=== PATIENT | female | born 1980 | race Caucasian/White ===

== ENCOUNTER 2023-08-28 10:48 | Emergency (ER) | payer OTHER, SELFPAY ==
[2023-08-28 10:56] VITALS: BP 125/100
[2023-08-28 11:28] VITALS: BMI 34.8
--- NOTE | 2023-08-28 11:34 | ED.GENMED ---
History of Present Illness
General
Chief Complaint: Skin Problem
Source: patient
Exam Limitations: none
Time Seen by Provider: 08/28/23 11:34
Nursing documentation reviewed up to this point in time: agreed with
Travel History
Have you had any contact with someone who has COVID-19?: No
Do you have any symptoms of coronavirus? Fever > 100 degrees, chills, cough, shortness of breath, sore throat, loss of taste or smell, muscle aches, or headache?: No
History of Present Illness
History of Present Illness:
42-year-old female with no significant past medical history presents with itchy rash on both forearms, face ears and anterior neck.
Started a new job 13 days ago, using [employer], wears gloves up to wrists. Rash started both anterior wrists as small patches, has spread to both forearms up to elbows, entire face, anterior neck, ears. Only on exposed skin.
Denies fever/chills.
Past History
Past History
ED Past Medical History: Asthma (RAD, asthmatic bronchitis) and Psychiatric
ED Past Surgical History: None
Social History
Tobacco: Smoker
Alcohol: Occasional
Drug: None
Personal:
Living: with family
Employment: Not employed
Family History
Family History: Negative Early CAD
Review of Systems
Review of Systems
Allergies reviewed?: Yes
All Other Systems: ROS reviewed and negative except as documented in HPI and ROS
Constitutional: Denies fever
EENT: Denies sore throat or mouth swelling
Respiratory: Denies trouble breathing
Cardiac: Denies chest pain
ABD/GI: Denies nausea
Skin: Reports itching and rash
Neurological: Denies headache
Phy Exam
Physical Exam
Physical Exam:
GENERAL: No acute distress. A&Ox3.
CONSTITUTIONAL: Afebrile.
EYES: clear, conjunctivae normal
Neck: Supple
ENMT: moist mucus membranes, Pharynx nl
RESPIRATORY: Regular respirations, nonlabored, lungs clear.
CARDIOVASCULAR: Regular rate and rhythm, no murmurs, no rubs.
GI: Soft, nontender, normal BS
MUSCULOSKELETAL: Moves with ease. Well perfused.
SKIN: Warm, dry, pink, raised itchy raised macular rash on both forearms mainly anterior aspects and over entire face, ears and anterior neck. Mild swelling of eyelids. The rest of the skin is spared
PSYCH: Normal mood and affect. Well kept, interactive and appropriate
NEUROLOGIC: Awake, alert and oriented. No focal neurological deficits
Course
Vital Signs
Initial and Last Documented VS:
Initial Vital Signs
Pulse Resp BP Pulse Ox
100 16 125/100 98
08/28/23 10:56 08/28/23 10:56 08/28/23 10:56 08/28/23 10:56
Last Documented Vital Signs
Pulse Resp BP Pulse Ox
95 16 103/58 97
08/28/23 13:15 08/28/23 13:15 08/28/23 13:15 08/28/23 13:15
MDM/Problems Addressed
Differential Diagnosis Includes:
Allergic contact dermatitis to chemical
MDM/Problems Addressed:
42-year-old female with no significant past medical history presents with itchy rash on both forearms, face ears and anterior neck.
Started a new job 13 days ago, using [employer], wears gloves up to wrists. Rash started both anterior wrists as small patches, has spread to both forearms up to elbows, entire face, anterior neck, ears. Only on exposed skin.
Started new [employer] last week, had 0.25 mg 8 and 2 days ago. Wonders if allergic reaction to this.
Denies fever/chills.
Significant itchy rash of face, ears, anterior neck and forearms to elbows
Patient has no systemic symptoms, no indication for blood work
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
Plan:
Rx for prednisone taper sent to her pharmacy
Benadryl as needed, watch for signs of infection
*Critical Care Note
Total Time (30-74mins, 75-104mins- exclusive of procedures): Not Applicable
ED Attending Note
-
Portions of this chart may have been created with voice recognition software.� Occasional wrong word or��sound alike� substitutions may have occurred due to the inherent limitations of voice recognition software.
Discharge Plan
Departure
Patient Disposition: Home (Routine Discharge)
Date of Disposition: 08/28/23
Time of Disposition: 12:53
Patient with high blood pressure during this ER visit?: Yes
Condition: Fair
Discharge Problem:
Allergic contact dermatitis due to chemical
Instructions: Contact Dermatitis (DC)
Prescriptions:
New
prednisone 10 mg Tablet
See Rx Instructions .ROUTE .COMPLEX Qty: 45 0RF
Rx Instructions:
Take By Mouth:
50 mg daily x3 days, 40 mg daily x3 days,
30 mg daily x3 days, 20 mg daily x3 days,
10 mg daily x3 days
No Action
bupropion HCl 150 MG tablet sustained-release 12 hr
150 mg PO DAILY
carisoprodol 350 MG tablet
350 mg PO TID PRN (Reason: spasm) Qty: 15 0RF
prednisone 10 MG tablet
10 mg PO Daily Qty: 20 0RF
Rx Instructions:
Take 5 on days 1 and 2 then 4, 3 ,2, 1 thereafter.
carisoprodol [Soma] 250 MG tablet
250 mg PO TIDPRN PRN (Reason: for spasm) Qty: 30 0RF
oxycodone-acetaminophen 5 MG/325 MG tablet
2 tab PO Q6HPRN PRN (Reason: pain) Qty: 15 0RF
Rx Instructions:
Do not drive, operate machinery or make important decisions while taking this medication.
prednisone 20 MG tablet
40 mg PO DAILY Qty: 8 0RF
carisoprodol 350 MG tablet
350 mg PO TIDPRN PRN (Reason: back pain) Qty: 30 0RF
gabapentin 300 MG capsule
300 mg PO TID Qty: 15 0RF
Rx Instructions:
Take 1 capsule every 12 hours tomorrow, and then every eight hours starting November 28
prednisone 20 MG tablet
40 mg PO DAILY Qty: 6 0RF
carisoprodol 350 MG tablet
350 mg PO TIDPRN PRN (Reason: muscle spasms, tightness) Qty: 6 0RF
Referrals:
Herbert Franklin MD [Family Provider] - As needed
Stand Alone Forms: Return to Work
Activity Restrictions/Additional Instructions:
As we discussed, I sent a prescription to your pharmacy for a prednisone taper.
You may also take Benadryl 25-50 mg every 6 hours as needed for itching, it can make you sleepy so do no drive or operate any machinery within 6 hours of taking it.
Avoid contact with the [employer].
See your doctor for recheck in 5 days if no improvement.
Seek medical care immediately for signs of infection which may include fever, vomiting, increasing swelling and redness, pus drainage.
Interventions
Interventions:
*Risk Screen - Suicide Last Done: 08/28/23 10:56
*General Assessment Last Done: 08/28/23 10:56
*Neglect/Abuse Screening Last Done: 08/28/23 10:56
ED- Fall Risk Assessment Last Done: 08/28/23 11:28
*ED COVID-19 Vaccine History Last Done: 08/28/23 11:28
*Nursing Disposition Last Done: 08/28/23 13:15
ED-Skin Assessment Last Done: 08/28/23 11:28
Discharge Date and Time
Discharge Date/Time: 08/28/23 13:20
Print Language: ALGERIAN
[2023-08-28 13:15] VITALS: BP 103/58
== END 2023-08-28 13:20 | disposition home or self-care (01) ==
LOC: EMR 10:48
PROVIDERS: EMERGENCY PHYSICIAN Emergency Medicine; FAMILY PHYSICIAN Family Medicine
DX: L23.5 Allergic contact dermatitis due to other chemical products (principal); F17.200 Nicotine dependence, unspecified, uncomplicated; Y99.0 Civilian activity done for income or pay; R03.0 Elevated blood-pressure reading, without diagnosis of hypertension
CPT/HCPCS: 99283

== ENCOUNTER 2024-04-25 17:50 | Emergency (ER) | payer SELFPAY ==
[2024-04-25 17:52] VITALS: BP 128/96
--- NOTE | 2024-04-25 17:55 | ED.GENMED ---
ED Provider Triage
-
Patient seen by provider in Triage?: Seen in Triage
43-year-old female history of smoking, presents for 2 to 3 days of fever subjective and a cough. Patient has a little bit of tightness in her lungs.
She has no history of any lung disease. She has had pneumonia previously and felt like this. She does not get a flu shot this year. She has had a COVID-vaccine. On exam the patient is not hypoxic, afebrile, in no respiratory distress but does
have crackles in the left base suspicious for pneumonia.
She is otherwise healthy, will start with flu, COVID, chest x-ray
A medical screening examination has been initiated by a qualified medical provider. Based on the assessment performed at this time, it has been determined that an emergent medical condition may exist and the patient has been informed that further
medical evaluation and possible additional diagnostic testing may be needed.
HPI: This is a medical evaluation conducted in person to initiate diagnostic evaluation and provide initial therapeutics. Please see further documentation by the treating clinician.
GENERAL: Alert , in no apparent distress
ENT: No visible abnormalities
LUNGS: No acute respiratory distress
Crackles left base minimally, no wheezing
NEUROLOGICAL: Alert and oriented
SKIN: Skin intact. No visible changes.
MUSCULOSKELETAL: Moving extremities normally
PSYCH: Normal and appropriate interaction.
History of Present Illness
General
Chief Complaint: Fever
Source: patient
Exam Limitations: none
Time Seen by Provider: 04/25/24 18:03
Nursing documentation reviewed up to this point in time: agreed with
History of Present Illness
History of Present Illness:
43-year-old female with history of depression
Presents for 2 days of subjective fever, chills and a cough. Patient says she also has a headache. She has been taking ibuprofen 3-4 times a day for symptoms. She is not having significant shortness of breath or pleuritic pain but she feels some
discomfort with coughing. Her cough is moderate. She has had pneumonia previously and feels similar. She is not having any neck stiffness, vomiting or diarrhea. Patient is not asthmatic but she is a smoker
Past History
Past History
ED Past Medical History: Asthma (RAD, asthmatic bronchitis) and Psychiatric
ED Past Surgical History: None
Social History
Tobacco: Smoker
Alcohol: Occasional
Drug: None
Personal:
Living: with family
Employment: Not employed
Family History
Family History: Negative Early CAD
Review of Systems
Review of Systems
Allergies reviewed?: Yes
All Other Systems: Not applicable
Phy Exam
Physical Exam
Physical Exam:
GENERAL: Alert , in no apparent distress
EYE: pupils equal and reactive
NECK: Supple
ENT: b/l TM s clear, pharynx erythematous but no tonsillar hypertrophy or exudates
CARDIAC: Regular rate and rhythm, no edema
LUNGS: Clear breath sounds bilaterally, no acute respiratory distress, no wheezes/rales/rhonchi, occ cough
ABDOMEN: Soft, without focal tenderness, no r/g, no cvat, normal bowel sounds
NEUROLOGICAL: Alert and oriented, no focal neuro deficits
SKIN: Warm and dry, skin intact.
MUSCULOSKELETAL: No edema, well perfused.
PSYCH: Normal and appropriate interaction.
Course
Orders/Labs/Results
Orders:
Orders
04/25/24 17:55
CR Chest - 2 Views Urgent
Comment:
Reason For Exam: cough, fever x 2 days
04/25/24 17:58
COVID-19 Antigen Urgent
Source: Nasal Swab
Influenza A+B Rapid Molecular Urgent
[facility] Source: Nasal Swab
Specimen Description:
04/25/24 18:27
Amoxicillin 875 mg/Clav 125 mg [Augmentin 875 mg/125 mg] 1 tablet PO NOW STA
Azithromycin [Zithromax] 500 mg PO NOW STA
Vital Signs
Initial and Last Documented VS:
Initial Vital Signs
Temp Pulse Resp BP Pulse Ox
36.9 C 101 18 128/96 96
04/25/24 17:52 04/25/24 17:52 04/25/24 17:52 04/25/24 17:52 04/25/24 17:52
Last Documented Vital Signs
Temp Pulse Resp BP Pulse Ox
36.9 C 95 18 113/65 94
04/25/24 17:52 04/25/24 18:30 04/25/24 18:30 04/25/24 18:30 04/25/24 18:31
MDM/Problems Addressed
Differential Diagnosis Includes:
flu, covid, pneumonia,
MDM/Problems Addressed:
43-year-old female with a history of smoking and history of pneumonia previously presents with 2 days of a fever, headache, cough. Occasionally she feels short of breath if she goes to exert herself but otherwise no shortness of breath. She is not
having pleuritic chest pain but feels some tightness with the cough. She is not wheezing. On exam she is not hypoxic, afebrile after taking medication today. She has crackles in her left base. Her chest x-ray was independently reviewed by me to
reveal significant lower lobe pneumonia. Reviewed with ED attending Dr. Chaudhry who also saw the patient. She appears to be not feeling well but nontoxic and in no respiratory distress. Will treat her with Zithromax and Augmentin given the
fair amount of mycoplasma pneumonia that is going around. Return precautions given. Also will give her an inhaler as needed for her cough
*Critical Care Note
Total Time (30-74mins, 75-104mins- exclusive of procedures): Not Applicable
ED Attending Note
-
Portions of this chart may have been created with voice recognition software.� Occasional wrong word or��sound alike� substitutions may have occurred due to the inherent limitations of voice recognition software.
Discharge Plan
Departure
Patient Disposition: Home (Routine Discharge)
Date of Disposition: 04/25/24
Time of Disposition: 18:29
Patient with high blood pressure during this ER visit?: No
Covid-19: Negative COVID-19
Discharge Problem:
Pneumonia
Instructions: Pneumonia, Adult (DC)
Prescriptions:
New
amoxicillin-pot clavulanate 875-125 mg tablet
1 tab PO BID Qty: 20 0RF
albuterol sulfate 90 mcg/actuation HFA aerosol inhaler
2 puff inhalation Q6H PRN (Reason: shortness of breath or wheezing) Qty: 6.7 0RF
azithromycin [Zithromax] 250 mg tablet
250 mg PO DAILY Qty: 4 0RF
No Action
bupropion HCl 150 MG tablet sustained-release 12 hr
150 mg PO DAILY
carisoprodol 350 MG tablet
350 mg PO TID PRN (Reason: spasm) Qty: 15 0RF
prednisone 10 MG tablet
10 mg PO Daily Qty: 20 0RF
Rx Instructions:
Take 5 on days 1 and 2 then 4, 3 ,2, 1 thereafter.
carisoprodol [Soma] 250 MG tablet
250 mg PO TIDPRN PRN (Reason: for spasm) Qty: 30 0RF
oxycodone-acetaminophen 5 MG/325 MG tablet
2 tab PO Q6HPRN PRN (Reason: pain) Qty: 15 0RF
Rx Instructions:
Do not drive, operate machinery or make important decisions while taking this medication.
prednisone 20 MG tablet
40 mg PO DAILY Qty: 8 0RF
carisoprodol 350 MG tablet
350 mg PO TIDPRN PRN (Reason: back pain) Qty: 30 0RF
gabapentin 300 MG capsule
300 mg PO TID Qty: 15 0RF
Rx Instructions:
Take 1 capsule every 12 hours tomorrow, and then every eight hours starting November 28
prednisone 20 MG tablet
40 mg PO DAILY Qty: 6 0RF
carisoprodol 350 MG tablet
350 mg PO TIDPRN PRN (Reason: muscle spasms, tightness) Qty: 6 0RF
prednisone 10 mg Tablet
See Rx Instructions .ROUTE .COMPLEX Qty: 45 0RF
Rx Instructions:
Take By Mouth:
50 mg daily x3 days, 40 mg daily x3 days,
30 mg daily x3 days, 20 mg daily x3 days,
10 mg daily x3 days
Stand Alone Forms: Return to Work
Activity Restrictions/Additional Instructions:
You have a moderate size pneumonia in your left lower lobe. You need to watch your symptoms closely and take your antibiotics. Should you get any worse with shortness of breath or continued spiking fevers in the next 2 to 3 days you should return
to the ER.
Also return for severe vomiting or diarrhea, lethargy, chest pain etc.
Otherwise take Augmentin twice a day for 10 days. Also take Zithromax once a day for 4 more days starting tomorrow
You can use an inhaler 2 puffs every 4-6 hours as needed for cough. Stay up on your Tylenol and ibuprofen for headache and fever symptoms. Stay hydrated. Return for any concerns
YOU NEED TO HAVE REPEAT CHEST XRAY IN 3-4 WEEKS TO BE SURE THIS IMPROVED.
Interventions
Interventions:
*Risk Screen - Suicide Last Done: 04/25/24 17:56
*General Assessment Last Done: 04/25/24 17:55
*Neglect/Abuse Screening Last Done: 04/25/24 17:56
*ED COVID-19 Vaccine History Last Done: 04/25/24 17:56
ED- Neurological Assessment Last Done: 04/25/24 18:30
ED-Skin Assessment Last Done: 04/25/24 18:30
Discharge Date and Time
Print Language: KAZAKH
[2024-04-25 18:17] LABS: COVID-19 Antigen Negative (Negative)
[2024-04-25 18:30] VITALS: BP 113/65
[2024-04-25] MEDS: AUGMENTIN 875 MG/125 MG 1 TABLET PO (18:37)
[2024-04-25] MEDS: ZITHROMAX 500 MG PO (18:38)
== END 2024-04-25 18:45 | disposition home or self-care (01) ==
LOC: EMR 17:50
PROVIDERS: Physician Assistant; EMERGENCY PHYSICIAN Emergency Medicine; FAMILY PHYSICIAN Family Medicine
DX: J18.9 Pneumonia, unspecified organism (principal); F32.A Depression, unspecified; J45.909 Unspecified asthma, uncomplicated; F17.200 Nicotine dependence, unspecified, uncomplicated; Z87.01 Personal history of pneumonia (recurrent)
CPT/HCPCS: 99283; 71046; 87502; 87811

== ENCOUNTER 2024-05-19 16:33 | Emergency (ER) | payer OTHER, SELFPAY ==
[2024-05-19 16:38] VITALS: BP 125/77
[2024-05-19 17:17] LABS: % Basophils 0.5 % (0-2); % Eosinophils 3.4 % (0-6); % Immature Granulocytes 0.3 % (0-0.5); % Lymphocytes 20.9 % (20.5-51.1); % Monocytes 5.9 % (1.7-9.3); Absolute Basophils 0.1 10^3/uL (0-0.2); Absolute Eosinophils 0.3 10^3/uL (0-0.7); Absolute Monocytes 0.6 10^3/uL (0.1-0.6); Absolute Neutrophils 6.5 10^3/uL (1.4-6.5); Hematocrit 36.5 % (37.0-47.0); Hemoglobin 12.2 g/dL (12.0-16.0); Mean Corp Hgb Conc. 33.4 g/dL (33.0-37.0); Mean Corpuscular Hgb 31.4 pg (27.0-31.0); Mean Corpuscular Volume 93.8 fL (81.0-99.0); Mean Platelet Volume 8.4 fL (7.4-10.4); Nucleated Red Blood Cells % 0 %; Platelet Count 255 10^3/uL (130-400); Red Blood Cell Count 3.89 10^6/uL (4.20-5.40); Red Cell Dist. Width 13.4 % (11.5-14.5); White Blood Cell Count 9.4 10^3/uL (4.8-10.8)
[2024-05-19 17:27] LABS: HCG, Serum Qualitative Screen Negative
[2024-05-19 17:32] LABS: ALT (SGPT) 33 U/L (0-35); AST (SGOT) 43 U/L (14-36); Albumin 4.1 g/dl (3.5-5.0); Alkaline Phosphatase 78 U/L (38-126); Blood Urea Nitrogen 6 mg/dl (7-17); Calcium 8.8 mg/dl (8.4-10.2); Carbon Dioxide 27 mmol/L (22-30); Chloride 98 mmol/L (98-107); Glucose 99 mg/dl (70-99); Potassium 3.9 mmol/L (3.5-5.1); Sodium 133 mmol/L (135-145); Total Bilirubin 0.3 mg/dl (0.2-1.3); Total Protein 6.6 g/dl (6.3-8.2); eGFR > 60.00
[2024-05-19 17:38] LABS: COVID-19 Antigen Negative (Negative)
--- NOTE | 2024-05-19 19:20 | ED.GENMED ---
History of Present Illness
General
Chief Complaint: Breathing Problem
Source: patient
Exam Limitations: none
Time Seen by Provider: 05/19/24 19:05
Nursing documentation reviewed up to this point in time: agreed with
History of Present Illness
History of Present Illness:
43 y/o F with h/o previous PNA treated 3 weeks ago LLL
with augmentin and zithromax
felt better but then about 5 days ago started feeling winded, [place] with walking and feels her HR is elevated
she has had a borderline temperature as well the past 2 days
still has a slight cough
no vomiting,d iarrhea
has some trouble taking deep breaths
no recent surgeries or immobilization
never had DVT/PE
no leg swelling
no OCPs
Past History
Past History
ED Past Medical History: Asthma (RAD, asthmatic bronchitis) and Psychiatric
ED Past Surgical History: None
Social History
Tobacco: Smoker
Alcohol: Occasional
Drug: None
Personal:
Living: with family
Employment: Not employed
Family History
Family History: Negative Early CAD
Phy Exam
Physical Exam
Physical Exam:
GENERAL: Alert , in no apparent distress
EYE: pupils equal and reactive
NECK: Supple
ENT: o/p clr, mmm.
CARDIAC: Regular rate and rhythm .
LUNGS: insp/exp wheezes throughout, some faint crackles L base; no resp distress; occ cough
ABDOMEN: Soft, without focal tenderness, no r/g, no cvat, normal bowel sounds
NEUROLOGICAL: Alert and oriented, no focal neuro deficits
SKIN: Warm and dry, skin intact.
MUSCULOSKELETAL: No edema, well perfused. neg stephanie's sign
PSYCH: Normal and appropriate interaction.
Course
Orders/Labs/Results
Orders:
Orders
05/19/24 16:34
ECG [Electrocardiogram (*1)] Urgent
Reason for Study: Shortness of Breath
EKG- Treatment ONCE
Test Result ONCE
05/19/24 17:06
COVID-19 Antigen Urgent
Source: Nasal Swab
Complete Blood Count/With Diff Urgent
Comprehensive Metabolic Panel Urgent
HCG, Serum Qualitative Screen Urgent
Influenza A+B Rapid Molecular Urgent
[facility] Source: Nasal Swab
Specimen Description:
05/19/24 19:17
CT Chest Pe Study Urgent
Comment:
Reason For Exam: recent pna, resolved, now sob, elev hr
05/19/24 19:18
Dexamethasone Sod Phosphate [Decadron] 10 mg IV NOW STA
Ipratropium/Albuterol Sulfate [Duoneb] 3 ml INH R NOW ONE
05/19/24 21:34
Ipratropium/Albuterol Sulfate [Duoneb] 3 ml INH R NOW STA
Abnormal Lab Results
05/19/24
17:06
RBC 3.89 L 10^6/uL
(4.20-5.40)
Hct 36.5 L %
(37.0-47.0)
MCH 31.4 H pg
(27.0-31.0)
Sodium 133 L mmol/L
(135-145)
BUN 6 L mg/dl
(7-17)
AST 43 H U/L
(14-36)
05/19/24 17:06
05/19/24 17:06
Vital Signs
Initial and Last Documented VS:
Initial Vital Signs
Temp Pulse Resp BP Pulse Ox
37.6 C 110 22 125/77 97
05/19/24 16:38 05/19/24 16:38 05/19/24 16:38 05/19/24 16:38 05/19/24 16:38
Last Documented Vital Signs
Temp Pulse Resp BP Pulse Ox
37.6 C 99 23 107/60 91
05/19/24 16:38 05/19/24 21:45 05/19/24 21:45 05/19/24 20:00 05/19/24 21:45
MDM/Problems Addressed
Differential Diagnosis Includes:
pna, asthmatic bronchitis, reactive airway, PE
MDM/Problems Addressed:
43 y/o F
seen nearly 3.5 weeks ago for pneumonia LLL moderate sized infilrate
treated with augmentin and zithromax
fevers improved, cough dissipated but never fully resolved and then the apst few days she has felt SOB with elevated HR
no obvious fever
no cp
no achiness
well appearing
no resp distress
wheezing insp/exp
pulse ox 93%
tachy
CT shows no PE but has fluid that is multilobar that could be c/w viral pneumonia but when compared to infiltrate from 3 weeks ago, it is mostly in the LLL
i do feelt hat this is not techynically treatment failure, she has reassuring blood work with normal wbc
an dmore wheezing
pt has requiered steroids previously with pna;
given duoneb and steroids and felt much better
she ambulated and did desat to 90%
but pt wants to go home, feels better
has neb machine but needed nebules rx which i sent to pharmacy
will hold on additional abx but instead do steroids and albuterol
offered admission but pt feels well enough and would like to go home
d/w dr. villalba.
*Critical Care Note
Total Time (30-74mins, 75-104mins- exclusive of procedures): Not Applicable
ED Attending Note
-
Portions of this chart may have been created with voice recognition software.� Occasional wrong word or��sound alike� substitutions may have occurred due to the inherent limitations of voice recognition software.
Discharge Plan
Departure
Patient Disposition: Home (Routine Discharge)
Date of Disposition: 05/19/24
Time of Disposition: 21:54
Patient with high blood pressure during this ER visit?: No
Condition: Fair
Covid-19: Not Applicable
Discharge Problem:
Asthmatic bronchitis
Instructions: Wheezing in adults - ED discharge instructions, Bronchitis in adults - ED discharge instructions
Prescriptions:
New
albuterol sulfate 2.5 mg /3 mL (0.083 %) solution for nebulization
2.5 mg inhalation QID PRN (Reason: shortness of breath or wheezing) Qty: 90 0RF
prednisone 50 mg tablet
50 mg PO DAILY Qty: 5 0RF
No Action
bupropion HCl 150 MG tablet sustained-release 12 hr
150 mg PO DAILY
carisoprodol 350 MG tablet
350 mg PO TID PRN (Reason: spasm) Qty: 15 0RF
prednisone 10 MG tablet
10 mg PO Daily Qty: 20 0RF
Rx Instructions:
Take 5 on days 1 and 2 then 4, 3 ,2, 1 thereafter.
carisoprodol [Soma] 250 MG tablet
250 mg PO TIDPRN PRN (Reason: for spasm) Qty: 30 0RF
oxycodone-acetaminophen 5 MG/325 MG tablet
2 tab PO Q6HPRN PRN (Reason: pain) Qty: 15 0RF
Rx Instructions:
Do not drive, operate machinery or make important decisions while taking this medication.
prednisone 20 MG tablet
40 mg PO DAILY Qty: 8 0RF
carisoprodol 350 MG tablet
350 mg PO TIDPRN PRN (Reason: back pain) Qty: 30 0RF
gabapentin 300 MG capsule
300 mg PO TID Qty: 15 0RF
Rx Instructions:
Take 1 capsule every 12 hours tomorrow, and then every eight hours starting November 28
prednisone 20 MG tablet
40 mg PO DAILY Qty: 6 0RF
carisoprodol 350 MG tablet
350 mg PO TIDPRN PRN (Reason: muscle spasms, tightness) Qty: 6 0RF
prednisone 10 mg Tablet
See Rx Instructions .ROUTE .COMPLEX Qty: 45 0RF
Rx Instructions:
Take By Mouth:
50 mg daily x3 days, 40 mg daily x3 days,
30 mg daily x3 days, 20 mg daily x3 days,
10 mg daily x3 days
amoxicillin-pot clavulanate 875-125 mg tablet
1 tab PO BID Qty: 20 0RF
albuterol sulfate 90 mcg/actuation HFA aerosol inhaler
2 puff inhalation Q6H PRN (Reason: shortness of breath or wheezing) Qty: 6.7 0RF
azithromycin [Zithromax] 250 mg tablet
250 mg PO DAILY Qty: 4 0RF
Referrals:
Greg Leavitt MD [Active] - Follow up in 5-7 days (PULMONARY)
Herbert Franklin MD [Family Provider] - Follow up in 2-3 days
Stand Alone Forms: Return to Work
Activity Restrictions/Additional Instructions:
YOUR CAT SCAN WAS NEGATIVE FOR BLOOD CLOT BUT YOU HAVE SOME FLUID IN YOUR LUNGS THAT LOOKS LIKE A VIRAL PNEUOMONIA - YOU DO NEED TO HAVE REPEATED IMAGING IN 3-4 WEEKS TO BE SURE THIS CLEARS UP
DRINK FLUIDS/STAY HYDRATED
NEBULIZER EVERY 4-6 HOURS FOR WHEEZING
PREDNISONE ONCE A DAY OR 5 DAYS
SEE YOUR DOCTOR TN[facility] TWEEK
RETURN FOR: WROSENING SHORTNESS OF BREATH, CHEST PAIN, PASSING OUT, WORSE WHEEZING OR ANY CONCERNS.
Interventions
Interventions:
*Risk Screen - Suicide Last Done: 05/19/24 19:36
*General Assessment Last Done: 05/19/24 19:36
*Neglect/Abuse Screening Last Done: 05/19/24 19:36
ED- Fall Risk Assessment Last Done: 05/19/24 19:37
*ED COVID-19 Vaccine History Last Done: 05/19/24 19:36
*Nursing Disposition Last Done: 05/19/24 22:08
ED- Cardiac Assessment Last Done: 05/19/24 19:37
ED- Pulmonary Assessment Last Done: 05/19/24 19:37
Discharge Date and Time
Discharge Date/Time: 05/19/24 22:11
Print Language: COMORAN
[2024-05-19] MEDS: DUONEB 3 ML INH ×2 (19:30→21:59)
[2024-05-19] MEDS: DECADRON 10 MG IV (19:30)
[2024-05-19 19:33] VITALS: BP 121/74
[2024-05-19 19:35] VITALS: BMI 34.4
[2024-05-19 20:00] VITALS: BP 107/60
== END 2024-05-19 22:11 | disposition home or self-care (01) ==
LOC: EMR 16:33
PROVIDERS: Emergency Medicine; EMERGENCY PHYSICIAN Emergency Medicine; FAMILY PHYSICIAN Family Medicine
DX: J45.909 Unspecified asthma, uncomplicated (principal); F17.200 Nicotine dependence, unspecified, uncomplicated; Z87.01 Personal history of pneumonia (recurrent)
CPT/HCPCS: 99284; 94640; 96374; 71275; 80053; 84703; 85025; 87502; 87811; 93005; Q9967

== ENCOUNTER 2025-03-12 17:04 | Emergency (ER) | payer OTHER, SELFPAY ==
[2025-03-12 17:17] VITALS: BP 145/83
[2025-03-12 18:10] LABS: COVID-19 Antigen Negative (Negative)
--- NOTE | 2025-03-12 19:15 | ED.GENMED ---
History of Present Illness
General
Chief Complaint: Pneumonia Symptoms
Source: patient
Exam Limitations: none
Time Seen by Provider: 03/12/25 19:08
Nursing documentation reviewed up to this point in time: agreed with
History of Present Illness
History of Present Illness:
Patient to the emergency department with complaint of chest tightness, shortness of breath, cough. States symptoms started approximately 3 days ago. She reports that she has had pneumonia in the past and that her symptoms today are very similar.
She denies any fever or chills. She has a prescription for an albuterol inhaler, PMH asthma, to be used as needed and has found the need to use it frequently today. She was brought to the emergency department by her spouse for evaluation. She
reports a history of smoking. Stopped smoking cigarettes approximately 1 month ago and has been vaping since.
Past History
Past History
ED Past Medical History: Asthma (RAD, asthmatic bronchitis) and Psychiatric
ED Past Surgical History: None
Social History
Tobacco: Vaping (Quit cigarettes approx 1 mos ago)
Alcohol: Occasional
Drug: None
Personal:
Living: with family
Employment: Not employed
Family History
Family History: Negative Early CAD
Review of Systems
Review of Systems
Allergies reviewed?: Yes
All Other Systems: ROS reviewed and negative except as documented in HPI and ROS
Constitutional: Reports no symptoms
EENT: Reports no symptoms
Respiratory: Reports cough and trouble breathing
Cardiac: Reports no symptoms
ABD/GI: Reports no symptoms
: Reports no symptoms
Musculoskeletal: Reports no symptoms
Neurological: Reports no symptoms
Psychiatric: Reports no symptoms
Phy Exam
General Physical Exam
General Presentation: mild distress
General age: appears stated age
General Skin: warm and dry
General Habitus: normal
General Mental: alert
Cardiovascular Exam
Cardiovascular Exam: regular rate/rhythm and no edema
Pulmonary Exam
Pulmonary Exam: chest non tender
Oxygen Status: room air (Pulse ox 97%)
Cough: coarse cough
Breath Sounds: Wheeze: generalized
Musculoskeletal Exam
Musculoskeletal Exam: full ROM and neuro vasc intact
Skin Exam
Skin Exam: normal color, warm/dry and no rash
Psychiatric Exam
Psychiatric Exam: normal mood/affect
Course
Orders/Labs/Results
Orders:
Orders
03/12/25 17:20
Electrocardiogram (*1) Urgent
Reason for Study: Shortness of Breath
EKG- Treatment ONCE
CR Chest - 2 Views Urgent
Comment:
Reason For Exam: chest tightness, cough, SOB
03/12/25 17:31
COVID-19 Antigen Urgent
Source: Nasal Swab
Influenza A+B Rapid Molecular Urgent
[facility] Source: Nasal Swab
Specimen Description:
03/12/25 19:14
Dexamethasone Sod Phosphate [Decadron] 10 mg IV NOW STA
Ipratropium/Albuterol Sulfate [Duoneb] 3 ml INH R NOW STA
03/12/25 19:26
Complete Blood Count/With Diff Urgent
Comprehensive Metabolic Panel Urgent
Troponin I Urgent
Abnormal Lab Results
03/12/25
19:26
RBC 4.18 L 10^6/uL
(4.20-5.40)
MCH 31.3 H pg
(27.0-31.0)
Lymphocytes % 16.8 L %
(20.5-51.1)
Glucose 108 H mg/dl
(70-99)
AST 39 H U/L
(14-36)
03/12/25 19:26
03/12/25 19:26
Vital Signs
Initial and Last Documented VS:
Initial Vital Signs
Temp Pulse Resp BP Pulse Ox
98.6 F 89 16 145/83 97
03/12/25 17:17 03/12/25 17:17 03/12/25 17:17 03/12/25 17:17 03/12/25 17:17
Last Documented Vital Signs
Temp Pulse Resp BP Pulse Ox
98.6 F 92 16 103/79 100
03/12/25 17:17 03/12/25 19:36 03/12/25 19:36 03/12/25 19:36 03/12/25 19:36
*Radiology
Radiology exam reviewed: radiology read reviewed
*Pulse Oximetry
SaO2: 97
Oxygen Mode of Delivery: Room air
Patient hypoxic: no
*Critical Care Note
Total Time (30-74mins, 75-104mins- exclusive of procedures): Not Applicable
Update Note
Update Note:
Patient to the emergency department with complaint of shortness of breath and cough. Symptoms started approximately 3 days ago. She has a history of asthma and uses an albuterol inhaler infrequently for any chest tightness or wheezing. She states
she has had to use her inhaler frequently over the past 24 hours. She denies any fever or chills. Nonproductive cough. Labs reviewed CBC and CHEM within normal limits. COVID and influenza both negative. Chest x-ray completed NAD. Her pulse ox
remains 98% on room air. On initial exam she had wheezing throughout all lung cowart. She was given 10 mg of Decadron IV and a DuoNeb. Improvement noted after DuoNeb. She has a nebulizer at home. Will recommend albuterol nebulized treatments
every 4 hours as needed for chest tightness and wheezing. Prescription sent to her pharmacy. Prescription for prednisone taper also sent. Discussed discharge plans with patient and she is agreeable. She was given instructions on signs and
symptoms to return to the emergency department and she is agreeable to plan
ED Attending Note
-
Portions of this chart may have been created with voice recognition software.� Occasional wrong word or��sound alike� substitutions may have occurred due to the inherent limitations of voice recognition software.
Discharge Plan
Departure
Patient Disposition: Home (Routine Discharge)
Date of Disposition: 03/12/25
Time of Disposition: 20:32
Patient with high blood pressure during this ER visit?: No
Condition: Good
Covid-19: Not Applicable
Discharge Problem:
Asthma exacerbation
Instructions: Acute Bronchitis, Adult (DC), Asthma in adults (DC)
Prescriptions:
New
albuterol sulfate 2.5 mg /3 mL (0.083 %) solution for nebulization
2.5 mg inhalation Q4H Qty: 180 0RF
prednisone 10 mg Tablet
See Rx Instructions .ROUTE .COMPLEX Qty: 30 0RF
Rx Instructions:
Take By Mouth:
40 mg daily x3 days, 30 mg daily x3 days,
20 mg daily x3 days, 10 mg daily x3 days.
No Action
bupropion HCl 150 MG tablet sustained-release 12 hr
150 mg PO DAILY
carisoprodol 350 MG tablet
350 mg PO TID PRN (Reason: spasm) Qty: 15 0RF
prednisone 10 MG tablet
10 mg PO Daily Qty: 20 0RF
Rx Instructions:
Take 5 on days 1 and 2 then 4, 3 ,2, 1 thereafter.
carisoprodol [Soma] 250 MG tablet
250 mg PO TIDPRN PRN (Reason: for spasm) Qty: 30 0RF
oxycodone-acetaminophen 5 MG/325 MG tablet
2 tab PO Q6HPRN PRN (Reason: pain) Qty: 15 0RF
Rx Instructions:
Do not drive, operate machinery or make important decisions while taking this medication.
prednisone 20 MG tablet
40 mg PO DAILY Qty: 8 0RF
carisoprodol 350 MG tablet
350 mg PO TIDPRN PRN (Reason: back pain) Qty: 30 0RF
gabapentin 300 MG capsule
300 mg PO TID Qty: 15 0RF
Rx Instructions:
Take 1 capsule every 12 hours tomorrow, and then every eight hours starting November 28
prednisone 20 MG tablet
40 mg PO DAILY Qty: 6 0RF
carisoprodol 350 MG tablet
350 mg PO TIDPRN PRN (Reason: muscle spasms, tightness) Qty: 6 0RF
prednisone 10 mg Tablet
See Rx Instructions .ROUTE .COMPLEX Qty: 45 0RF
Rx Instructions:
Take By Mouth:
50 mg daily x3 days, 40 mg daily x3 days,
30 mg daily x3 days, 20 mg daily x3 days,
10 mg daily x3 days
amoxicillin-pot clavulanate 875-125 mg tablet
1 tab PO BID Qty: 20 0RF
albuterol sulfate 90 mcg/actuation HFA aerosol inhaler
2 puff inhalation Q6H PRN (Reason: shortness of breath or wheezing) Qty: 6.7 0RF
azithromycin [Zithromax] 250 mg tablet
250 mg PO DAILY Qty: 4 0RF
albuterol sulfate 2.5 mg /3 mL (0.083 %) solution for nebulization
2.5 mg inhalation QID PRN (Reason: shortness of breath or wheezing) Qty: 90 0RF
prednisone 50 mg tablet
50 mg PO DAILY Qty: 5 0RF
Referrals:
UNKNOWN - PT DOES,NOT KNOW [Family Provider]
Stand Alone Forms: Return to Work
Activity Restrictions/Additional Instructions:
Return to the emergency department immediatley for any changes in/or worsening of your symptoms
Interventions
Interventions:
*Risk Screen - Suicide Last Done: 03/12/25 19:35
*General Assessment Last Done: 03/12/25 19:35
*Neglect/Abuse Screening Last Done: 03/12/25 19:35
*ED- Fall Risk Assessment Last Done: 03/12/25 19:35
*ED COVID-19 Vaccine History Last Done: 03/12/25 19:35
*ED Influenza Vaccine History Last Done: 03/12/25 19:35
Discharge Date and Time
Print Language: [place]
[2025-03-12 19:30] VITALS: BMI 39.1
[2025-03-12] MEDS: DUONEB 3 ML INH (19:31)
[2025-03-12] MEDS: DECADRON 10 MG IV (19:31)
[2025-03-12 19:36] VITALS: BP 103/79
[2025-03-12 19:53] LABS: Hematocrit 39.1 % (37.0-47.0); Hemoglobin 13.1 g/dL (12.0-16.0); Mean Corp Hgb Conc. 33.5 g/dL (33.0-37.0); Mean Corpuscular Volume 93.5 fL (81.0-99.0); Nucleated Red Blood Cells % 0 %; Platelet Count 226 10^3/uL (130-400); Red Cell Dist. Width 13.4 % (11.5-14.5)
[2025-03-12 20:07] LABS: ALT (SGPT) 25 U/L (0-35); AST (SGOT) 39 U/L (14-36); Albumin 4.3 g/dl (3.5-5.0); Alkaline Phosphatase 56 U/L (38-126); Blood Urea Nitrogen 11 mg/dl (7-17); Calcium 9.1 mg/dl (8.4-10.2); Carbon Dioxide 29 mmol/L (22-30); Chloride 102 mmol/L (98-107); Estimated Creatinine Clearance 101 ml/min; Glucose 108 mg/dl (70-99); Potassium 4.2 mmol/L (3.5-5.1); Sodium 136 mmol/L (135-145); Total Protein 7.0 g/dl (6.3-8.2); eGFR > 60.00
[2025-03-12 20:19] LABS: Troponin I < 0.012 ng/ml
== END 2025-03-12 20:46 | disposition home or self-care (01) ==
LOC: EMR 17:04
PROVIDERS: Emergency Medicine; EMERGENCY PHYSICIAN Emergency Medicine
DX: J45.901 Unspecified asthma with (acute) exacerbation (principal); F17.290 Nicotine dependence, other tobacco product, uncomplicated; Z87.01 Personal history of pneumonia (recurrent)
CPT/HCPCS: 99284; 96374; 94640; 71046; 80053; 84484; 85025; 87502; 87811; 93005